=== PATIENT | female | born 1995 | race Caucasian/White ===

== ENCOUNTER → 2016-11-21 | Outpatient (CLI) | payer OTHER ==
[~2016-11-21] MED LIST: GADOBUTROL 7.5 MMOL/7.5 ML VIAL IV ONE
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
== END | disposition home or self-care (01) ==
LOC: MRI 13:17
PROVIDERS: ATTEND Physician Assistant
DX: H47.12 Papilledema associated with decreased ocular pressure (principal)
CPT/HCPCS: 70544; 70549; A9585

== ENCOUNTER 2017-04-07 22:24 | Emergency (ER) | payer OTHER ==
[~2017-04-07] VITALS: Ht 167.6 cm; Wt 95.3 kg
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
[2017-04-07] MEDS ORDERED: NABU500T PO (23:05)
[2017-04-07] MEDS ORDERED: TRAZ100T12 PO (23:05)
[2017-04-07] MEDS ORDERED: IBUPROFEN 600 MG TABLET. PO ONE (23:15)
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
[2017-04-07] MEDS ORDERED: IBUP-1007 PO (23:36)
[2017-04-07 23:43] VITALS: BP 139/76
[2017-04-08] MEDS ORDERED: ONDANSETRON ODT 4 MG TAB.RAPDIS. PO ONE
== END 2017-04-07 23:47 | disposition home or self-care (01) ==
LOC: ER 22:24
DX: S39.012A Strain of muscle, fascia and tendon of lower back, initial encounter (principal); S29.012A Strain of muscle and tendon of back wall of thorax, initial encounter; S16.1XXA Strain of muscle, fascia and tendon at neck level, initial encounter; V43.52XA Car driver injured in collision with other type car in traffic accident, initial encounter; Y93.89 Activity, other specified; Y99.8 Other external cause status; Y92.410 Unspecified street and highway as the place of occurrence of the external cause
CPT/HCPCS: 72125; 72128; 72131; 99284; Q0162